=== PATIENT | male | born 1975 | race American Indian/Alaskan Native ===

== ENCOUNTER 2017-03-12 13:57 | Outpatient (CLI) | payer BC ==
--- NOTE | 2017-03-12 14:57 | Cat Scan Report ---
CT OF THE ABDOMEN AND PELVIS WITHOUT CONTRAST HISTORY: Hematuria. TECHNIQUE: Helical CT without contrast. Sagittal and coronal reformatted images. FINDINGS: No comparison. Both kidneys are normal size, contour and position. A 7 x 6 mm calculus is identified in the proximal left ureter. Mild hydronephrosis in the left kidney. There is a questionable 4 mm calculus in the distal left ureter on image 181, series 3. An 8mm calyceal stone is identified in the inferior right kidney. No right ureteral stones. The bladder is unremarkable. The liver, biliary system, pancreas, spleen, adrenal glands, aorta, bowel loops and appendix are unremarkable. IMPRESSION: There appear to be 2 left ureteral stones as described above. Mild left hydronephrosis. Nonobstructing right renal stone.
== END 2017-03-12 13:58 | disposition home or self-care (01) ==
LOC: CT 13:57
PROVIDERS: ATTEND Internal Medicine Nephrology
DX: N13.2 Hydronephrosis with renal and ureteral calculous obstruction (principal)
CPT/HCPCS: 74176

== ENCOUNTER 2017-04-13 14:20 | Outpatient (CLI) | payer BC ==
--- NOTE | 2017-04-13 15:11 | Ultrasound Report ---
Renal ultrasound. History: Hematuria. Findings: The right kidney measures 10.5 cm in longitudinal axis and the left kidney measures 9.2 cm in longitudinal axis. There are no renal masses. There is mild left hydronephrosis. Images of the urinary bladder reveal no significant findings. Impression: Mild left hydronephrosis.
== END 2017-04-13 14:21 | disposition home or self-care (01) ==
LOC: US 14:20
PROVIDERS: ATTEND Internal Medicine Nephrology
DX: N20.0 Calculus of kidney (principal); N13.30 Unspecified hydronephrosis
CPT/HCPCS: 76770